=== PATIENT | male | born 1975 | race Caucasian/White ===

== ENCOUNTER 2019-04-04 03:40 | Emergency (ER) | payer MEDICAID ==
[~2019-04-04] VITALS: Ht 172.7 cm; Wt 81.8 kg
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
--- NOTE | 2019-04-04 04:34 | NUR ---
PT ABLE TO AMBULATE WITH STEADY GAIT. REPORTS "IM READY TO LEAVE".
[2019-04-04 05:25] VITALS: BP 118/81
--- NOTE | 2019-04-04 05:25 | NUR ---
PT ABLE TO AMBULATE WITH STEADY GAIT AT THIS TIME.
== END 2019-04-04 05:28 | disposition home or self-care (01) ==
LOC: ED 05:20
DX: F10.120 Alcohol abuse with intoxication, uncomplicated (principal); Y90.9 Presence of alcohol in blood, level not specified
CPT/HCPCS: 99283